=== PATIENT | female | born 1935 | race Caucasian/White ===

== ENCOUNTER 2019-10-19 07:32 | Outpatient (CLI) | payer MEDICARE ==
[~2019-10-19 07:32] MED LIST: ATOR20TA86 PO; FERR-51 PO; HYDR-3622 PO; METO25TA4 PO; PANT40TA5 PO; REGADENOSON 0.4 MG/5 ML SYRINGE ONE; RIVA10TA2 PO; SENN-193 PO; SPIR25TA5 PO
== END 2019-10-19 23:59 | disposition home or self-care (01) ==
LOC: CFH 07:32
PROVIDERS: ATTEND Internal Medicine Cardiovascular Disease
DX: I35.0 Nonrheumatic aortic (valve) stenosis (principal); I70.213 Atherosclerosis of native arteries of extremities with intermittent claudication, bilateral legs; G95.19 Other vascular myelopathies
CPT/HCPCS: 78452; 93017; A9502; J2785

== ENCOUNTER → 2020-03-30 | Outpatient (CLI) | payer MEDICARE ==
[~2020-03-30] MED LIST changes: -PANT40TA5 PO; +PANT40TA6 PO; -REGADENOSON 0.4 MG/5 ML SYRINGE ONE
== END | disposition home or self-care (01) ==
LOC: CVU 09:18
PROVIDERS: ATTEND Internal Medicine Cardiovascular Disease
DX: I08.0 Rheumatic disorders of both mitral and aortic valves (principal); I10 Essential (primary) hypertension; E78.5 Hyperlipidemia, unspecified; I48.91 Unspecified atrial fibrillation; I25.10 Atherosclerotic heart disease of native coronary artery without angina pectoris; I70.213 Atherosclerosis of native arteries of extremities with intermittent claudication, bilateral legs
CPT/HCPCS: 93306